=== PATIENT | male | born 1950 | race Caucasian/White ===

== ENCOUNTER 2016-10-20 10:00 | Emergency (ER) | payer MEDICARE ==
[~2016-10-20] VITALS: Ht 175.3 cm; Wt 110.0 kg
[2016-10-20] VITALS (9 sets, daily range): BP systolic 117–140; BP diastolic 68–90; PULSE 91–128; RESP 16–20; TEMP 97.9; O2SAT 98–100
[2016-10-20] MEDS ORDERED: POTA10CA PO (10:24)
[2016-10-20] MEDS ORDERED: FINA5TAB2 PO (10:24)
[2016-10-20] MEDS ORDERED: SIMV40TA PO (10:24)
[2016-10-20] MEDS ORDERED: CIAL5TAB PO (10:24)
[2016-10-20] MEDS ORDERED: DABI1CAP3 PO (10:24)
[2016-10-20] MEDS ORDERED: AMIO200T PO ×2 (10:24→12:42)
[2016-10-20] MEDS ORDERED: LISI-519 PO (10:24)
[2016-10-20] MEDS ORDERED: magnesium PO (10:24)
[2016-10-20] MEDS ORDERED: OMEGCAP PO (10:24)
[2016-10-20] MEDS ORDERED: SODIUM CHLORIDE 0.9% FLUSH 10 ML FLUSH IVF PRN (10:45)
[2016-10-20] MEDS ORDERED: DILTIAZEM HCL 25 MG/5 ML VIAL IV ONE (10:45)
[2016-10-20] MEDS ORDERED: SODIUM CHLORID 0.9% 500 ML INJ 500 ML IV ONE (10:45)
--- NOTE | 2016-10-20 10:53 | PD ---
HPI Chief Complaint: Cardiac Complaint Time Seen by Provider: 10:19 Travel History International Travel<30 days: No Contact w/Intl Traveler<30days: No Traveled to known affect area: No History of Present Illness HPI Patient is a 66-year-old male who presents to the emergency department for atrial flutter. Patient has a long-standing history of atrial flutter with multiple electrophysiology studies in the past with antiarrhythmic treatment. The patient states he is recently on a cruise, felt himself going atrial flutter on Monday. The patient normally takes 4 baby aspirin per day, took Pradaxa Monday after he felt himself go into atrial flutter. The patient also states he was on propafenone, was placed on amiodarone drip for 6 hours and then placed on amiodarone 200 mg twice a day. The patient has been on amiodarone in the past, however, was taken off of amiodarone after he was cardioverted back to normal sinus rhythm. 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 The patient does complain of fluttering with mild chest discomfort, denies any outright shortness of breath, nausea, vomiting, or diaphoresis. The patient does not have a local primary physician. PFSH Past Medical History Atrial Fibrillation: Yes High Cholesterol: Yes Hypertension: Yes Sleep Apnea: Yes (cpap) Influenza Vaccination: Yes Past Surgical History Cardiac Surgery: Yes (abaltions) Tonsillectomy: Yes Social History Alcohol Use: Yes (occas) Tobacco Use: No Substance Use: No Allergies-Medications (Allergen,Severity, Reaction): Coded Allergies: No Known Allergies (Unverified , 10/20/16) Reported Meds & Prescriptions Reported Meds & Active Scripts Active Reported [place]-3 Fish Oil/Vitamin (Fish Oil-Cholecalciferol) 1,000-1,000 Mg Cap 1,000 Cap PO DAILY [magnesium] 500 Mg PO BID Potassium Chloride ER (Potassium Chloride) 10 Meq Cap 10 Meq PO DAILY Pradaxa (Dabigatran) 110 Mg Cap 150 Mg PO BID Simvastatin 40 Mg Tab 40 Mg PO HS Amiodarone (Amiodarone HCl) 200 Mg Tab 200 Mg PO DAILY Lisinopril 5 Mg Tab 5 Mg PO DAILY Finasteride 5 Mg Tab 5 Mg PO DAILY Do not crush. Cialis (Tadalafil) 5 Mg Tab 5 Mg PO DAILY Do not exceed 1 dose/day. Review of Systems Except as stated in HPI: all other systems reviewed are Neg General / Constitutional: No: Fever HENT: No: Lightheadedness Cardiovascular: Positive: Chest Pain or Discomfort, Palpitations, Tachycardia, No: Diaphoresis Respiratory: No: Shortness of Breath Gastrointestinal: No: Nausea, Vomiting, Abdominal Pain Musculoskeletal: No: Edema Neurologic: No: Dizziness Physical Exam Narrative GENERAL: Awake, alert, pleasant 66-year-old male who appears his stated age and is in no acute respiratory distress. SKIN: Focused skin assessment warm/dry. HEAD: Atraumatic. Normocephalic. EYES: Pupils equal and round. No scleral icterus. No injection or drainage. ENT: No nasal bleeding or discharge. Mucous membranes pink and moist. NECK: Trachea midline. No JVD. CARDIOVASCULAR: Regular, tachycardic with a heart rate of 125. RESPIRATORY: No accessory muscle use. Clear to auscultation. Breath sounds equal bilaterally. GASTROINTESTINAL: Abdomen soft, non-tender, nondistended. No rebound tenderness. MUSCULOSKELETAL: No obvious deformities. No clubbing. No cyanosis. No edema. NEUROLOGICAL: Awake and alert. No obvious cranial nerve deficits. Motor grossly within normal limits. Normal speech. PSYCHIATRIC: Appropriate mood and affect; insight and judgment normal. Data Data Last Documented VS Vital Signs Date Time Temp Pulse Resp B/P Pulse Ox O2 Delivery O2 Flow Rate FiO2 10/20/16 11:30 122/74 120/74 10/20/16 11:10 93 16 98 Room Air 10/20/16 10:01 97.9 Orders Electrocardiogram (10/20/16 10:40) Ckmb (Isoenzyme) Profile (10/20/16 10:40) Complete Blood Count With Diff (10/20/16 10:40) Comprehensive Metabolic Panel (10/20/16 10:40) Magnesium (Mg) (10/20/16 10:40) Prothrombin Time / Inr (Pt) (10/20/16 10:40) Act Partial Throm Time (Ptt) (10/20/16 10:40) Troponin I (10/20/16 10:40) Ecg Monitoring (10/20/16 10:40) Bilateral Bp Monitoring (10/20/16 10:40) Iv Access Insert/Monitor (10/20/16 10:40) Oximetry (10/20/16 10:40) Oxygen Administration (10/20/16 10:40) Sodium Chloride 0.9% Flush (Ns Flush) (10/20/16 10:45) Sodium Chlorid 0.9% 500 Ml Inj (Ns 500 M (10/20/16 10:45) Diltiazem Inj (Cardizem Inj) (10/20/16 10:45) Electrocardiogram (10/20/16 ) Metoprolol Tartrate Inj (Lopressor Inj) (10/20/16 12:45) Metoprolol Tartrate (Lopressor) (10/20/16 12:45) Labs Laboratory Tests Test 10/20/16 10:40 White Blood Count 7.9 TH/MM3 Red Blood Count 4.88 MIL/MM3 Hemoglobin 15.4 GM/DL Hematocrit 46.6 % Mean Corpuscular Volume 95.5 FL Mean Corpuscular Hemoglobin 31.6 PG Mean Corpuscular Hemoglobin 33.1 % Concent Red Cell Distribution Width 12.7 % Platelet Count 258 TH/MM3 Mean Platelet Volume 8.7 FL Neutrophils (%) (Auto) 68.5 % Lymphocytes (%) (Auto) 22.9 % Monocytes (%) (Auto) 5.0 % Eosinophils (%) (Auto) 3.1 % Basophils (%) (Auto) 0.5 % Neutrophils # (Auto) 5.4 TH/MM3 Lymphocytes # (Auto) 1.8 TH/MM3 Monocytes # (Auto) 0.4 TH/MM3 Eosinophils # (Auto) 0.2 TH/MM3 Basophils # (Auto) 0.0 TH/MM3 CBC Comment DIFF FINAL Differential Comment Prothrombin Time 11.5 SEC Prothromb Time International 1.0 RATIO Ratio Activated Partial 35.2 SEC Thromboplast Time Sodium Level 137 MEQ/L Potassium Level 4.4 MEQ/L Chloride Level 101 MEQ/L Carbon Dioxide Level 27.5 MEQ/L Anion Gap 9 MEQ/L Blood Urea Nitrogen 11 MG/DL Creatinine 0.94 MG/DL Estimat Glomerular Filtration 80 ML/MIN Rate Random Glucose 93 MG/DL Calcium Level 9.3 MG/DL Magnesium Level 2.3 MG/DL Total Bilirubin 0.5 MG/DL Aspartate Amino Transf 20 U/L (AST/SGOT) Alanine Aminotransferase 21 U/L (ALT/SGPT) Alkaline Phosphatase 69 U/L Total Creatine Kinase 81 U/L Troponin I LESS THAN 0.02 NG/ML Total Protein 7.0 GM/DL Albumin 4.0 GM/DL [facility] Medical Decision Making Medical Screen Exam Complete: Yes Emergency Medical Condition: Yes Medical Record Reviewed: Yes Interpretation(s) EKG reveals atrial flutter/tachycardia with RVR Laboratory Tests Test 10/20/16 10:40 White Blood Count 7.9 TH/MM3 Red Blood Count 4.88 MIL/MM3 Hemoglobin 15.4 GM/DL Hematocrit 46.6 % Mean Corpuscular Volume 95.5 FL Mean Corpuscular Hemoglobin 31.6 PG Mean Corpuscular Hemoglobin 33.1 % Concent Red Cell Distribution Width 12.7 % Platelet Count 258 TH/MM3 Mean Platelet Volume 8.7 FL Neutrophils (%) (Auto) 68.5 % Lymphocytes (%) (Auto) 22.9 % Monocytes (%) (Auto) 5.0 % Eosinophils (%) (Auto) 3.1 % Basophils (%) (Auto) 0.5 % Neutrophils # (Auto) 5.4 TH/MM3 Lymphocytes # (Auto) 1.8 TH/MM3 Monocytes # (Auto) 0.4 TH/MM3 Eosinophils # (Auto) 0.2 TH/MM3 Basophils # (Auto) 0.0 TH/MM3 CBC Comment DIFF FINAL Differential Comment Prothrombin Time 11.5 SEC Prothromb Time International 1.0 RATIO Ratio Activated Partial 35.2 SEC Thromboplast Time Sodium Level 137 MEQ/L Potassium Level 4.4 MEQ/L Chloride Level 101 MEQ/L Carbon Dioxide Level 27.5 MEQ/L Anion Gap 9 MEQ/L Blood Urea Nitrogen 11 MG/DL Creatinine 0.94 MG/DL Estimat Glomerular Filtration 80 ML/MIN Rate Random Glucose 93 MG/DL Calcium Level 9.3 MG/DL Magnesium Level 2.3 MG/DL Total Bilirubin 0.5 MG/DL Aspartate Amino Transf 20 U/L (AST/SGOT) Alanine Aminotransferase 21 U/L (ALT/SGPT) Alkaline Phosphatase 69 U/L Total Creatine Kinase 81 U/L Troponin I LESS THAN 0.02 NG/ML Total Protein 7.0 GM/DL Albumin 4.0 GM/DL Differential Diagnosis Differential diagnosis includes atrial flutter, atrial fibrillation, hypokalemia , hypomagnesemia, CHF, CAD, arrhythmia. Narrative Course IV was established, labs are drawn and sent, and the patient was placed on cardiac telemetry monitoring and continuous pulse oximetry monitoring. EKG was ordered and interpreted. The patient already took Pradaxa this morning, therefore, aspirin was held. The patient was administered Cardizem 15 mg intravenously. Electrolytes unremarkable. Troponin is negative. The patient' s heart rate came down to 100, EKG was repeated, patient appears to be in atrial fibrillation with RVR, rate 100. The patient does not appear to be in flutter, however, now appears to be in atrial fibrillation. I discussed the patient with the on-call warehouse selector, Dr. Pacheco. After discussion was agreed we would keep the patient on amiodarone 200 mg daily and add metoprolol 50 mg twice a day. The patient was administered 1 dose of Lopressor 1.25 mg intravenously in the emergency department and then administered oral Lopressor 50 mg. He will be advised to take it twice a day, hold for heart rate less than 60, to follow-up with his warehouse selector. Diagnosis Primary Impression: Atrial fibrillation with RVR Patient Instructions: General Instructions Additional Instructions: Metoprolol twice a day, hold for heart rate less than 60. Pradaxa twice a day as directed. Continue amiodarone 200 mg once a day. Follow-up with your warehouse selector. Please provide the patient a copy of his labs at discharge. Return if symptoms worsen or progress. Med/Other Pt SpecificInfo: Prescription(s) given Scripts Amiodarone 200 Mg [id number] Mg PO DAILY #14 TAB Ref 0 Prov:Sergo Gomez MD 10/20/16 Metoprolol Tartrate (Lopressor)50 Mg Tab50 Mg PO BID #28 TAB Ref 0 Prov:Sergo Gomez MD 10/20/16 Dabigatran (Pradaxa)150 Mg [id number] Mg PO BID #28 CAP Ref 0 Prov:Sergo Gomez MD 10/20/16 Disposition: 01 DISCHARGE HOME Condition: Stable Sergo Gomez MD Oct 20, 2016 10:53
[2016-10-20 11:13] LABS: AUTOMATED NEUTROPHIL # 5.4 TH/MM3 (1.8-7.7); BASOPHIL % 0.5 % (0.0-2.0); EOSINOPHIL # 0.2 TH/MM3 (0-0.4); EOSINOPHIL % 3.1 % (0.0-4.0); HEMATOCRIT 46.6 % (39.0-51.0); HEMO FLAGS DIFF FINAL; LYMPH % 22.9 % (9.0-44.0); LYMPHOCYTE # 1.8 TH/MM3 (1.0-4.8); MEAN CELL VOLUME 95.5 FL (80.0-100.0); MEAN CORPUSCULAR HEMOGLOBIN 31.6 PG (27.0-34.0); MEAN CORPUSCULAR HGB CONC 33.1 % (32.0-36.0); NEUT % 68.5 % (16.0-70.0); PLATELET COUNT 258 TH/MM3 (150-450); RED BLOOD COUNT 4.88 MIL/MM3 (4.50-5.90); RED CELL DISTRIBUTION WIDTH 12.7 % (11.6-17.2); WHITE BLOOD COUNT 7.9 TH/MM3 (4.0-11.0)
[2016-10-20 11:22] LABS: APTT (PATIENT) 35.2 SEC (24.3-30.1); PROTHROMBIN TIME - PATIENT 11.5 SEC (9.8-11.6)
[2016-10-20 11:40] LABS: ALKALINE PHOSPHATASE 69 U/L (45-117); ALT (GPT) 21 U/L (12-78); ANION GAP 9 MEQ/L (5-15); AST (GOT) 20 U/L (15-37); BICARBONATE 27.5 MEQ/L (21.0-32.0); BLOOD UREA NITROGEN 11 MG/DL (7-18); CHLORIDE 101 MEQ/L (98-107); GLOMERULAR FILTRATION RATE 80 ML/MIN (>89); MAGNESIUM 2.3 MG/DL (1.5-2.5); POTASSIUM 4.4 MEQ/L (3.5-5.1); SODIUM (NA) 137 MEQ/L (136-145); TOTAL BILIRUBIN ADULT 0.5 MG/DL (0.2-1.0)
[2016-10-20 11:42] LABS: CREATINE KINASE 81 U/L (39-308)
[2016-10-20] MEDS ORDERED: PRAD150C PO (12:42)
[2016-10-20] MEDS ORDERED: METO-309 PO (12:42)
[2016-10-20] MEDS ORDERED: METOPROLOL TARTRATE 50 MG TAB PO ONE (12:45)
[2016-10-20] MEDS ORDERED: METOPROLOL TARTRATE 5 MG/5 ML VIAL IV PUSH ONE ×2 (12:45→13:30)
--- NOTE | 2016-10-20 18:33 | EKG ---
Date Performed: 10/20/2016 Time Performed: 11:45:59 PTAGE: 66 years EKG: Probable atrial flutter with variable block LOW QRS VOLTAGE PATTERN CONSISTENT WITH PULMONA RY DISEASE INFERIOR MYOCARDIAL INFARCTION ABNORMAL ECG NO SIGNIFICANT CHANGE FROM PRIOR ELECTROCARDIO GRAM. PREVIOUS TRACING : 10/20/2016 10.17 DOCTOR: Ebenezer Lucero Interpretating Date/Time 10/20/2016 18:31:51
[2016-10-21] MEDS ORDERED: MAGN500T4 PO (12:22)
--- NOTE | 2016-10-24 08:13 | EKG ---
Date Performed: 10/20/2016 Time Performed: 10:17:55 PTAGE: 66 years EKG: ATRIAL FLUTTER/TACHYCARDIA WITH RAPID VENTRICULAR RESPONSE POSSIBLE ANTERIOR MYOCARDIAL INF ARCTION INFERIOR MYOCARDIAL INFARCTION ABNORMAL ECG NO PREVIOUS TRACING DOCTOR: Carlos Enrique Willett Interpretating Date/Time 10/24/2016 08:57:56
== END 2016-10-20 15:01 | disposition home or self-care (01) ==
LOC: NEPE 10:00
DX: I48.91 Unspecified atrial fibrillation (principal); E78.00 Pure hypercholesterolemia, unspecified; I10 Essential (primary) hypertension; G47.30 Sleep apnea, unspecified
CPT/HCPCS: 80053; 82550; 83735; 84484; 85025; 85610; 85730; 93005; 96361; 96374; 96375; 96376; 99284; J7040